=== PATIENT | female | born 1990 | race Caucasian/White ===

== ENCOUNTER 2021-05-26 17:54 | Inpatient (IN) | payer OTHER, SELFPAY ==
[~2021-05-26] VITALS: Ht 162.6 cm; Wt 99.8 kg
[2021-05-26] MEDS ORDERED: OXYTOCIN/0.9 % SODIUM CHLORIDE 1,000 ML IV SCH (23:45)
[2021-05-26] MEDS ORDERED: AMPICILLIN SODIUM 2 GM in NS 100 ML IV ONE (23:45)
[2021-05-26] MEDS ORDERED: TERBUTALINE SULFATE 1 MG/ML VIAL SUBCUT ONE (23:45)
[2021-05-26 23:47] VITALS: BP_SYST 131
[2021-05-27 00:14] LABS: BASOPHILS # (AUTO) 0.1 K/uL (0.0-0.2); BASOPHILS % (AUTO) 0.9 % (0.0-2.0); EOSINOPHILS # (AUTO) 0.1 K/uL (0.0-0.4); EOSINOPHILS % (AUTO) 1.5 % (0.0-4.0); HEMATOCRIT 35.8 % (36-48); HEMOGLOBIN 11.8 g/dL (12.0-16.0); LYMPHOCYTES % (AUTO) 20.5 % (20.5-51.5); MEAN CORPUSCULAR HEMOGLOBIN 28 pg (27-31); MEAN CORPUSCULAR HGB CONC 33 % (32-36); MEAN CORPUSCULAR VOLUME 84 fL (79.0-98.0); MONOCYTES # (AUTO) 0.6 K/uL (0.0-1.0); MONOCYTES % (AUTO) 6.8 % (1.7-9.3); NEUTROPHILS # (AUTO) 6.7 K/uL (1.8-7.7); NEUTROPHILS % (AUTO) 70.3 % (40.0-70.0); PLATELET COUNT (AUTO) 237 K/uL (130-430); RED BLOOD CELL COUNT(AUTO) 4.24 MIL/uL (4.2-6.2); RED CELL DISTRIBUTION WIDTH 15.7 % (9.0-15.0); WHITE BLOOD COUNT (AUTO) 9.5 K/uL (4.8-10.8)
[2021-05-27] MEDS ORDERED: AMPICILLIN SODIUM 2 GM VIAL ONE (00:14)
[2021-05-27] MEDS: LR 1,000 ML IV SCH ×2 (00:50→09:19)
[2021-05-27] MEDS ORDERED: OXYTOCIN 10 UNIT/ML VIAL IM ONE (04:00)
[2021-05-27] MEDS ORDERED: AMPICILLIN SODIUM 1 GM VIAL ONE (04:35)
[2021-05-27] MEDS: AMPICILLIN SODIUM 1 GM in NS 50 ML IV SCH ×4 (04:48→17:01)
[2021-05-27] MEDS ORDERED: OXYTOCIN 10 UNIT/ML VIAL ONE (05:39)
[2021-05-27] MEDS ORDERED: LIDOCAINE PF 1% 30ML(POUR BTL) INJ ONE (05:42)
[2021-05-27] MEDS: NALBUPHINE HCL 10 MG/ML AMP IVP PRN ×2 (12:02→18:06)
[2021-05-27] MEDS ORDERED: TEMAZEPAM 15 MG CAPSULE PO PRN (21:00)
[2021-05-27] MEDS ORDERED: LR 1,000 ML IV SCH (21:30)
[2021-05-27] MEDS ORDERED: LANOLIN 7 GM OINT. TP PRN (21:30)
[2021-05-27] MEDS ORDERED: OXYTOCIN/0.9 % SODIUM CHLORIDE 1,000 ML IV SCH (21:30)
[2021-05-27] MEDS ORDERED: DIPH-TET-PERTUS Vaccine 0.5 ML VIAL (ADACEL) I.M. PRN (21:30)
[2021-05-27] MEDS ORDERED: OXYTOCIN/0.9 % SODIUM CHLORIDE 1,000 ML IV ONE (21:30)
[2021-05-27] MEDS ORDERED: MEASLES,MUMPS&RUBELLA VACC/PF 12500 UNIT/0.5 ML VIAL SUBQ PRN (21:30)
[2021-05-27] MEDS ORDERED: DERMOPLAST SPRAY TP PRN (21:30)
[2021-05-27] MEDS ORDERED: RHO(D) IMMUNE GLOBULIN/MALTOSE 1500 UNITS/1.3 ML (WINHRO) IM PRN (21:30)
[2021-05-27] MEDS ORDERED: WITCH HAZEL LEAF 1 MED.PAD MED.PAD TP PRN (21:30)
[2021-05-27] MEDS: IBUPROFEN 600 MG TABLET PO SCH (22:17)
[2021-05-27] MEDS ORDERED: METHYLERGONOVINE MALEATE 0.2 MG TABLET PO PRN (23:00)
[2021-05-27] MEDS ORDERED: METHYLERGONOVINE MALEATE 0.2 MG/ML AMP ONE (23:08)
[2021-05-27] MEDS ORDERED: METHYLERGONOVINE MALEATE 0.2 MG/ML AMP IM ONE (23:35)
[2021-05-28] MEDS: IBUPROFEN 600 MG TABLET PO SCH ×3 (04:04→18:12)
[2021-05-28 07:52] LABS: HEMATOCRIT 25.1 % (36-48); HEMOGLOBIN 8.1 g/dL (12.0-16.0)
[2021-05-28] MEDS ORDERED: FERROUS SULFATE 325 MG TABLET.DR PO ONE (13:00)
[2021-05-28] MEDS: FERROUS SULFATE 325 MG TABLET.DR PO SCH (18:11)
[2021-05-29] MEDS: IBUPROFEN 600 MG TABLET PO SCH ×3 (00:14→11:56)
[2021-05-29] MEDS: FERROUS SULFATE 325 MG TABLET.DR PO SCH (08:32)
[2021-05-29] MEDS ORDERED: DOCUSATE SODIUM 100 MG CAPSULE PO SCH (09:00)
== END 2021-05-29 14:15 | disposition home or self-care (01) | DRG 560 ==
LOC: SPU 22:40
PROVIDERS: ADMIT Obstetrics & Gynecology; ATTEND Obstetrics & Gynecology
PROC: 10907ZC Drainage of Amniotic Fluid, Therapeutic from Products of Conception, Via Natural or Artificial Opening (ICD-10-PCS; 2021-05-26)
PROC: 10E0XZZ Delivery of Products of Conception, External Approach (ICD-10-PCS; principal; 2021-05-27)
DX: O24.425 Gestational diabetes mellitus in childbirth, controlled by oral hypoglycemic drugs (principal); Z37.0 Single live birth; O99.824 Streptococcus B carrier state complicating childbirth; Z20.822 Contact with and (suspected) exposure to COVID-19; Z3A.38 38 weeks gestation of pregnancy
CPT/HCPCS: 36415; 81002; 82947; 85018; 85025; 86592; 86886; 86900; 86901; J0290; J2001; J2210; J2300; J2590